=== PATIENT | female | born 1995 | race Caucasian/White ===

== ENCOUNTER 2023-12-18 20:22 | Emergency (ER) | payer SELFPAY ==
[2023-12-18 20:55] LABS: BASOPHILS ABSOLUTE AUTO 0.1 K/mm3 (0.0-0.2); BASOPHILS PERCENT AUTO 0.6 % (0.0-1.0); EOSINOPHILS ABSOLUTE AUTO 0.1 K/mm3 (0.0-0.4); EOSINOPHILS PERCENT AUTO 0.6 % (0.0-6.0); HEMATOCRIT 41.7 % (37.0-47.0); HEMOGLOBIN 14.5 gm/dl (12.0-16.0); IMMATURE GRAN ABSOLUTE AUTO 0.04 K/mm3 (0.00-0.05); IMMATURE GRAN PERCENT AUTO 0.3 % (0.0-0.4); LYMPHOCYTES ABSOLUTE AUTO 2.9 K/mm3 (1.0-4.8); LYMPHOCYTES PERCENT AUTO 24.8 % (24.0-44.0); MEAN CORPUSCULAR HEMOGLOBIN 30.3 pg (28.0-32.0); MEAN CORPUSCULAR HGB CONC 34.8 g/dl (32.0-36.0); MEAN CORPUSCULAR VOLUME 87.1 fl (83.0-99.0); MEAN PLATELET VOLUME 11.3 fl (9.4-12.3); MONOCYTES ABSOLUTE AUTO 0.8 K/mm3 (0.0-0.8); MONOCYTES PERCENT AUTO 6.5 % (0.0-8.0); NEUTROPHILS ABSOLUTE AUTO 7.7 K/mm3 (1.8-7.7); NEUTROPHILS PERCENT AUTO 67.2 % (41.0-71.0); PLATELET COUNT,PLT 296 K/mm3 (150-400); RED BLOOD CELL COUNT 4.79 M/mm3 (4.10-5.30); WHITE BLOOD CELL COUNT,WBC 11.49 K/mm3 (3.9-11.3)
[2023-12-18 21:16] LABS: A/G RATIO 1.3 (1-2); ALBUMIN 4.2 g/dl (3.4-5.0); ANION GAP 13.6 (5-15); BILIRUBIN TOTAL 0.5 mg/dL (0.2-1.0); BUN/CREATININE RATIO 8.6 (14-18); CALCIUM 9.4 mg/dL (8.5-10.1); CREATININE 0.7 mg/dL (0.55-1.02); EST CRCL DRUG DOSING (CG) 103.32 mL/min; POTASSIUM,K 3.6 mEq/L (3.5-5.1); PROTEIN TOTAL,TP 7.4 g/dl (6.4-8.2)
[2023-12-18] MEDS: Ondansetron 4 MG Tab.DIS PO ONE (22:38)
[2023-12-18] MEDS: hydrOXYzine HCl 25 MG Tab PO ONE (22:38)
== END 2023-12-18 22:38 | disposition home or self-care (01) ==
LOC: JD.ED 20:22
DX: R42 Dizziness and giddiness (principal); R74.01 Elevation of levels of liver transaminase levels; F17.210 Nicotine dependence, cigarettes, uncomplicated
CPT/HCPCS: 36415; 80053; 85025; 87635; 99284; A9270; U0002

== ENCOUNTER 2023-12-20 08:04 | Emergency (ER) | payer SELFPAY ==
[2023-12-20 08:54] LABS: APPEARANCE,URINE CLEAR (Clear); BILIRUBIN,URINE NEGATIVE (Negative); COLOR,URINE YELLOW (Yellow); GLUCOSE,URINE NEGATIVE (Negative); KETONES,URINE NEGATIVE (Negative); LEUKOCYTE ESTERASE,URINE NEGATIVE (Negative); NITRITE,URINE NEGATIVE (Negative); OCCULT BLOOD,URINE NEGATIVE (Negative); PROTEIN,URINE NEGATIVE (Negative); UROBILINOGEN,URINE 0.2 (0.2-1.0)
[2023-12-20] MEDS: Sodium Chloride 0.9% 1,000 ML IV ONE (09:00)
[2023-12-20 09:15] LABS: BASOPHILS ABSOLUTE AUTO 0.1 K/mm3 (0.0-0.2); BASOPHILS PERCENT AUTO 0.6 % (0.0-1.0); EOSINOPHILS PERCENT AUTO 0.3 % (0.0-6.0); IMMATURE GRAN ABSOLUTE AUTO 0.05 K/mm3 (0.00-0.05); IMMATURE GRAN PERCENT AUTO 0.4 % (0.0-0.4); LYMPHOCYTES ABSOLUTE AUTO 1.4 K/mm3 (1.0-4.8); MEAN CORPUSCULAR HEMOGLOBIN 29.5 pg (28.0-32.0); MEAN CORPUSCULAR VOLUME 86.7 fl (83.0-99.0); MEAN PLATELET VOLUME 11.1 fl (9.4-12.3); MONOCYTES ABSOLUTE AUTO 0.8 K/mm3 (0.0-0.8); MONOCYTES PERCENT AUTO 6.3 % (0.0-8.0); NEUTROPHILS ABSOLUTE AUTO 9.6 K/mm3 (1.8-7.7); NEUTROPHILS PERCENT AUTO 80.4 % (41.0-71.0); PLATELET COUNT,PLT 334 K/mm3 (150-400); RED BLOOD CELL COUNT 5.42 M/mm3 (4.10-5.30); WHITE BLOOD CELL COUNT,WBC 11.95 K/mm3 (3.9-11.3)
[2023-12-20 09:41] LABS: A/G RATIO 1.1 (1-2); ALANINE AMINOTRANSFERASE,ALT 307 U/L (14-59); ALBUMIN 4.3 g/dl (3.4-5.0); ALKALINE PHOSPHATASE 80 U/L (46-116); ASPARTATE AMNIOTRANSFERASE,AST 113 U/L (15-37); BILIRUBIN TOTAL 0.5 mg/dL (0.2-1.0); BLOOD UREA NITROGEN,BUN 12 mg/dL (7-18); BUN/CREATININE RATIO 17.1 (14-18); CALCIUM 9.9 mg/dL (8.5-10.1); CARBON DIOXIDE,CO2 24 mEq/L (21-32); CHLORIDE,CL 102 mEq/L (98-107); CREATININE 0.7 mg/dL (0.55-1.02); EST CRCL DRUG DOSING (CG) 103.32 mL/min; ESTIMATED GFR 121 mL/min (>60); GLUCOSE RANDOM 93 mg/dL (70-99); LIPASE 25 U/L (16-77); MAGNESIUM 1.9 mg/dL (1.8-2.4); PROTEIN TOTAL,TP 8.1 g/dl (6.4-8.2); SODIUM,NA 140 mEq/L (136-145)
[2023-12-20 09:45] LABS: TROPONIN I HIGH SENSITIVITY < 4 pg/mL (<=51)
== END 2023-12-20 10:11 | disposition home or self-care (01) ==
LOC: JD.ED 08:04
DX: E86.9 Volume depletion, unspecified (principal); R94.5 Abnormal results of liver function studies
CPT/HCPCS: 36415; 70450; 80053; 80307; 81003; 82947; 83690; 83735; 84484; 84703; 85025; 93005; 96360; 99285; J7030; 93010; 99284

== ENCOUNTER 2024-02-29 05:42 | Emergency (ER) | payer SELFPAY ==
[2024-02-29 06:26] LABS: BASOPHILS ABSOLUTE AUTO 0.1 K/mm3 (0.0-0.2); BASOPHILS PERCENT AUTO 0.4 % (0.0-1.0); EOSINOPHILS ABSOLUTE AUTO 0.1 K/mm3 (0.0-0.4); EOSINOPHILS PERCENT AUTO 0.4 % (0.0-6.0); HEMOGLOBIN 13.6 gm/dl (12.0-16.0); IMMATURE GRAN PERCENT AUTO 0.5 % (0.0-0.4); LYMPHOCYTES ABSOLUTE AUTO 2.2 K/mm3 (1.0-4.8); LYMPHOCYTES PERCENT AUTO 10.6 % (24.0-44.0); MEAN CORPUSCULAR HEMOGLOBIN 30.4 pg (28.0-32.0); MEAN CORPUSCULAR HGB CONC 33.2 g/dl (32.0-36.0); MEAN CORPUSCULAR VOLUME 91.7 fl (83.0-99.0); MEAN PLATELET VOLUME 10.1 fl (9.4-12.3); MONOCYTES ABSOLUTE AUTO 1.1 K/mm3 (0.0-0.8); MONOCYTES PERCENT AUTO 5.5 % (0.0-8.0); NEUTROPHILS PERCENT AUTO 82.6 % (41.0-71.0); PLATELET COUNT,PLT 287 K/mm3 (150-400); RED BLOOD CELL COUNT 4.47 M/mm3 (4.10-5.30)
[2024-02-29 06:51] LABS: A/G RATIO 1.2 (1-2); ALBUMIN 3.6 g/dl (3.4-5.0); ANION GAP 15.7 (5-15); BILIRUBIN TOTAL 0.5 mg/dL (0.2-1.0); BUN/CREATININE RATIO 23.3 (14-18); CALCIUM 8.7 mg/dL (8.5-10.1); CREATININE 0.6 mg/dL (0.55-1.02); EST CRCL DRUG DOSING (CG) 100.27 mL/min; POTASSIUM,K 3.7 mEq/L (3.5-5.1); PROTEIN TOTAL,TP 6.6 g/dl (6.4-8.2)
[2024-02-29 06:53] LABS: CORONAVIRUS COVID-19 NAA NEGATIVE (NEGATIVE); INFLUENZA A NAA NEGATIVE (NEGATIVE); RESPIRATORY SYNCYTIAL VIR NAA NEGATIVE (NEGATIVE)
[2024-02-29] MEDS: Alum Hydrox/Mag Hydrox/Simeth 30 ML, Lidocaine 2% 15 ML PO ONE (08:55)
[2024-02-29] MEDS: Famotidine 20 MG Tab PO ONE (08:55)
[2024-02-29 09:32] LABS: APPEARANCE,URINE CLEAR (Clear); BILIRUBIN,URINE NEGATIVE (Negative); COLOR,URINE YELLOW (Yellow); GLUCOSE,URINE NEGATIVE (Negative); KETONES,URINE 2+ (Negative); LEUKOCYTE ESTERASE,URINE 2+ (Negative); NITRITE,URINE NEGATIVE (Negative); OCCULT BLOOD,URINE NEGATIVE (Negative); PROTEIN,URINE NEGATIVE (Negative); UROBILINOGEN,URINE 0.2 (0.2-1.0)
[2024-02-29 10:16] LABS: BACTERIA,URINE FEW /hpf (FEW); RBC,URINE 0-5 /hpf (0-5); SQUAMOUS EPITHELIAL CELLS,UR 0-5 /hpf (0-5)
[2024-02-29 10:17] LABS: MUCUS,URINE RARE /hpf (FEW); YEAST BUDDING,URINE RARE (NOT SEEN)
== END 2024-02-29 10:02 | disposition home or self-care (01) ==
LOC: JD.ED 05:42
DX: R07.9 Chest pain, unspecified (principal); D72.829 Elevated white blood cell count, unspecified; J02.9 Acute pharyngitis, unspecified; R82.90 Unspecified abnormal findings in urine; Z86.16 Personal history of COVID-19; Z79.899 Other long term (current) drug therapy; Z79.2 Long term (current) use of antibiotics
CPT/HCPCS: 0241U; 36415; 71046; 80053; 81001; 83690; 84484; 84703; 85025; 86308; 87040; 87086; 87651; 93005; 99285; A9270